=== PATIENT | female | born 1995 ===

== ENCOUNTER 2016-08-16 13:41 | Emergency (ER) | payer OTHER ==
[2016-08-16 13:52] VITALS: BP 107/68; PULSE 68; RESP 20; TEMP 97.7; O2SAT 100
--- NOTE | 2016-08-16 14:37 | C.PDOC ---
History Of Present Illness 21 yo female, no prior hx, presents with rash. asp er pt, has had rash to neck abdomen, and groin area x 3 months. rash is puritic. pt states saw pmd, but "nothing was done". no fevers, or other complaints. no known allergens. rash is puritic. Time Seen by Provider: 08/16/16 14:09 Chief Complaint (Nursing): Abnormal Skin Integrity Past Medical History Reviewed: Historical Data, Nursing Documentation, Vital Signs Vital Signs: Last Vital Signs Temp 97.7 F 08/16/16 13:48 Pulse 68 08/16/16 13:48 Resp 20 08/16/16 13:48 BP 107/68 08/16/16 13:48 Pulse Ox 100 08/16/16 13:48 - Medical History PMH: Hiatal Hernia Family History: States: Unknown Family Hx - Social History Hx Alcohol Use: No Hx Substance Use: No - Immunization History Hx Tetanus Toxoid Vaccination: No Hx Influenza Vaccination: No Hx Pneumococcal Vaccination: No Review Of Systems Except As Marked, All Systems Reviewed And Found Negative. Skin: Positive for: Rash Physical Exam - Physical Exam Appears: Well, No Acute Distress Skin: Normal Color, Warm, Dry Eye(s): bilateral: Normal Inspection, PERRL, EOMI Nose: Normal Throat: Normal Neck: Normal Cardiovascular: Rhythm Regular Respiratory: Normal Breath Sounds Gastrointestinal/Abdominal: Normal Exam Back: Normal Inspection Extremity: Normal ROM Additional Physical Exam Comments: (+)mild rash to posteror neck, right inginal region and upper abd, small maculopapular, 2-3 cm. ED Course And Treatment O2 Sat by Pulse Oximetry: 100 Medical Decision Making Medical Decision Making: nonspecific rash x 3 months, will provide supportive therapy and advise outpt f/ u Disposition - Disposition Referrals: Moon Whitehead MD [Staff Provider] - [facility] [Outside] [facility] [Outside] [facility] [Outside] Disposition: HOME/ ROUTINE Disposition Time: 14:37 Condition: STABLE Prescriptions: Hydrocortisone 1% Cream [Cortizone 1% Cream] 1 appl TP BID #1 tube Prednisone 50 mg PO DAILY #5 tablet Instructions: Acute Rash (ED) - Clinical Impression Clinical Impression: Rash
== END 2016-08-16 14:47 | disposition home or self-care (01) ==
LOC: C.ER 13:41
DX: R21 Rash and other nonspecific skin eruption (principal)

== ENCOUNTER 2016-08-31 18:46 | Emergency (ER) | payer SELFPAY ==
[2016-08-31 18:54] VITALS: BP 139/81; PULSE 70; RESP 18; TEMP 98; O2SAT 100
--- NOTE | 2016-08-31 19:23 | C.PDOC ---
History Of Present Illness 21 year old female presents to ED with complaints of itchy rash to neck for few weeks which has been spreading. Denies any fever, discharge, SOB, or known allergens. Time Seen by Provider: 08/31/16 19:13 Chief Complaint (Nursing): Abnormal Skin Integrity History Per: Patient History/Exam Limitations: no limitations Onset/Duration Of Symptoms: Days Current Symptoms Are (Timing): Still Present Quality Of Symptoms: Itching Severity: Mild Recent travel outside of the [place] States: No Past Medical History Reviewed: Historical Data, Nursing Documentation, Vital Signs Vital Signs: Last Vital Signs Temp 98 F 08/31/16 18:53 Pulse 70 08/31/16 18:53 Resp 18 08/31/16 18:53 BP 139/81 08/31/16 18:53 Pulse Ox 100 08/31/16 19:47 - Medical History PMH: Hiatal Hernia Surgical History: No Surg Hx Family History: States: Unknown Family Hx - Social History Hx Alcohol Use: No Hx Substance Use: No - Immunization History Hx Tetanus Toxoid Vaccination: No Hx Influenza Vaccination: No Hx Pneumococcal Vaccination: No Review Of Systems Constitutional: Negative for: Fever, Chills ENT: Negative for: Ear Pain, Nose Congestion, Throat Pain Cardiovascular: Negative for: Palpitations Respiratory: Negative for: Shortness of Breath Skin: Positive for: Rash (itchy rash to neck) Neurological: Negative for: Weakness, Numbness, Headache, Dizziness Physical Exam - Physical Exam Appears: Non-toxic, No Acute Distress Skin: Warm, Dry, Rash (scaly patches and erythema to anterior posterior neck and under bilateral breasts and inguinal area) Head: Atraumatic, Normacephalic Eye(s): bilateral: Normal Inspection Neck: Normal ROM Chest: Symmetrical Cardiovascular: Rhythm Regular, No Murmur Respiratory: Normal Breath Sounds, No Rales, No Rhonchi, No Wheezing Extremity: Bilateral: Atraumatic, Normal Color And Temperature, Normal ROM Neurological/Psych: Oriented x3, Normal Speech Gait: Steady ED Course And Treatment O2 Sat by Pulse Oximetry: 100 (room air) Pulse Ox Interpretation: Normal Medical Decision Making Medical Decision Making: Rash is consistent with fungal infection, will prescribe cream to use. Disposition Counseled Patient/Family Regarding: Need For Followup, Rx Given - Disposition Referrals: [facility] [Outside] Disposition: HOME/ ROUTINE Disposition Time: 19:23 Condition: STABLE Additional Instructions: apply cream to area twice a day for 2-3 weeks take benadryl as needed for itching follow up with supervisor quality control if symptoms persist Prescriptions: Ketoconazole 2% Cr [Nizoral] 15 applic EXT BID #1 tube Instructions: Tinea Corporis (ED) - POA Present On Arrival: None - Clinical Impression Clinical Impression: Tinea corporis - PA / RECRUITING CONSULTANT / Resident Statement MD/DO has reviewed & agrees with the documentation as recorded. - Scribe Statement The provider has reviewed the documentation as recorded by the Scribveronica Wahl All medical record entries made by the Artur were at my direction and personally dictated by me. I have reviewed the chart and agree that the record accurately reflects my personal performance of the history, physical exam, medical decision making, and the department course for this patient. I have also personally directed, reviewed, and agree with the discharge instructions and disposition.
== END 2016-08-31 19:57 | disposition home or self-care (01) ==
LOC: C.ER 18:46 → SUPCPDRO 18:46 → C.ER 19:57
DX: B35.4 Tinea corporis (principal)

== ENCOUNTER 2017-09-01 19:28 | Emergency (ER) | payer MEDICAID ==
[2017-09-01] MEDS ORDERED: Sodium Chloride 0.9% 1,000 ML IV ONE (20:22)
[2017-09-01] MEDS ORDERED: Sodium Chloride 0.9% 1,000 ML ONE (20:39)
[2017-09-01 20:40] LABS: EOS % 0.3 % (0.0-4.0); HEMOGLOBIN 12.8 g/dL (11.0-16.0); LYMPH % 7.4 % (20.0-40.0); MEAN CELL VOLUME 81.7 fL (81.0-99.0); MEAN CORPUSCULAR HEMOGLOBIN 26.9 pg (27.0-31.0); MEAN CORPUSCULAR HGB CONC 32.9 g/dL (33.0-37.0); MEAN PLATELET VOLUME 9.2 fL (7.2-11.7); MONO # 1.1 K/uL (0.0-0.8); MONO % 8.1 % (0.0-10.0); NEUT % 84.2 % (50.0-75.0); PLATELET COUNT 204 K/uL (130-400); RBC 4.77 Mil/uL (3.80-5.20); RED CELL DISTRIBUTION WIDTH 16.2 % (11.5-14.5); WHITE BLOOD COUNT 13.1 K/uL (4.8-10.8)
[2017-09-01 20:50] LABS: SQUAMOUS EPITHIAL 11 /hpf (0-5); URINE BACTERIA RARE (<OCC); URINE BILIRUBIN NEGATIVE (NEGATIVE); URINE BLOOD NEGATIVE (NEGATIVE); URINE CLARITY Hazy (Clear); URINE COLOR Yellow (YELLOW); URINE GLUCOSE (UA) NORMAL (Normal); URINE LEUKOCYTE ESTERASE TRACE Leu/uL (Negative); URINE PROTEIN 1+ mg/dL (NEGATIVE); URINE UROBILINOGEN NORMAL mg/dL (0.2-1.0)
[2017-09-01 20:55] LABS: ALB/GLOB RATIO 1.1 (1.0-2.1); ALT/SGPT 19 U/L (9-52); AST/SGOT 25 U/L (14-36); BLOOD UREA NITROGEN 10 mg/dL (7-17); CALCIUM 8.9 mg/dl (8.6-10.4); GFR AFRICAN-AMERICAN > 60; GFR NON-AFRICAN AMERICAN > 60; LIPASE 95 U/L (23-300)
--- NOTE | 2017-09-01 20:57 | C.PDOC ---
History Of Present Illness 22 year old female, who is currently 11 weeks , presents to the ED for evaluation of nausea, vomiting, and diarrhea which began after she ate [place] food earlier today. Patient recently had a normal ultrasound and does not want another ultrasound right now. Patient denies vaginal bleeding/discharge, hematuria, dysuria. Time Seen by Provider: 09/01/17 20:17 Chief Complaint (Nursing): Abdominal Pain History Per: Patient History/Exam Limitations: no limitations Onset/Duration Of Symptoms: Hrs Current Symptoms Are (Timing): Still Present Associated Symptoms: Nausea, Vomiting, Diarrhea. denies: Urinary Symptoms Additional History Per: Patient Abnormal Vaginal Bleeding: No Past Medical History Reviewed: Historical Data, Nursing Documentation, Vital Signs Vital Signs: Last Vital Signs Temp 98.1 F 09/01/17 19:34 Pulse 74 09/01/17 19:34 Resp 14 09/01/17 19:34 BP 115/70 09/01/17 19:34 Pulse Ox 98 09/01/17 20:57 - Medical History PMH: Hiatal Hernia Surgical History: No Surg Hx Family History: States: Unknown Family Hx - Social History Hx Alcohol Use: No Hx Substance Use: No - Immunization History Hx Tetanus Toxoid Vaccination: No Hx Influenza Vaccination: No Hx Pneumococcal Vaccination: No Review Of Systems Gastrointestinal: Positive for: Nausea, Vomiting, Diarrhea Genitourinary: Negative for: Dysuria, Hematuria, Vaginal Discharge, Vaginal Bleeding Physical Exam - Physical Exam Appears: Non-toxic, No Acute Distress Skin: Normal Color, Warm, Dry Head: Atraumatic, Normacephalic Eye(s): bilateral: Normal Inspection Oral Mucosa: Moist Neck: Supple Chest: Symmetrical, No Deformity, No Tenderness Cardiovascular: Rhythm Regular, No Murmur Respiratory: Normal Breath Sounds, No Rales, No Rhonchi, No Wheezing Gastrointestinal/Abdominal: Soft, No Tenderness, No Guarding, No Rebound, Other (obese) Extremity: Normal ROM, Capillary Refill (less than 2 seconds ) Neurological/Psych: Oriented x3, Normal Speech, Normal Cognition Gait: Steady ED Course And Treatment - Laboratory Results Result Diagrams: 09/01/17 20:37 09/01/17 20:37 O2 Sat by Pulse Oximetry: 98 (on RA) Pulse Ox Interpretation: Normal Progress Note: Bloodwork and urinalysis ordered and reviewed. Zofran IVP and IV Fluids administered. Medical Decision Making Medical Decision Making: gastroenteritis from [place] food normal - re-eval deferred at this time by pt preference. Disposition Doctor Will See Patient In The: Office Counseled Patient/Family Regarding: Studies Performed, Diagnosis - Disposition Referrals: [facility] [Outside] [facility] [Outside] [facility] [Outside] Disposition: HOME/ ROUTINE Disposition Time: 20:57 Condition: GOOD Additional Instructions: sigue dieta blanda de BRAT: Bananas, arroz archibald, manzana, najera stefano jer muchos liquidos Sigue en la [facility]. Instructions: Gastroenteritis (DC) Forms: [employer] (Grenadian) Print Language: ENGLISH - Clinical Impression Clinical Impression: Gastroenteritis due to food toxin - Scribe Statement The provider has reviewed the documentation as recorded by the Scribe (Vanessa Acosta) Provider Attestation: All medical record entries made by the Scribe were at my direction and personally dictated by me. I have reviewed the chart and agree that the record accurately reflects my personal performance of the history, physical exam, medical decision making, and the department course for this patient. I have also personally directed, reviewed, and agree with the discharge instructions and disposition.
[2017-09-01 21:23] VITALS: BP 108/70; PULSE 88; RESP 18; TEMP 98.2; O2SAT 100
[2017-09-01 21:35] LABS: BANDS 2 % (0-2); LYMPHOCYTE 5 % (20-40); MONOCYTE 4 % (0-10); NEUTROPHIL 89 % (50-75); PLATELET ESTIMATE NORMAL (NORMAL); TOTAL CELLS COUNTED 100
== END 2017-09-01 21:22 | disposition home or self-care (01) ==
LOC: C.ER 19:28
DX: O26.91 Pregnancy related conditions, unspecified, first trimester (principal); K52.1 Toxic gastroenteritis and colitis; Z3A.11 11 weeks gestation of pregnancy
CPT/HCPCS: 80053; 81001; 83690; 85025; 96374; 99284; J2405; J7030

== ENCOUNTER 2018-01-06 11:19 | Emergency (ER) | payer MEDICAID, OTHER ==
[2018-01-06 11:33] VITALS: O2SAT 98; BMI 37.5
--- NOTE | 2018-01-06 12:09 | C.PDOC ---
History Of Present Illness 22 year old female who is currently 7 months presents to the ED complaining of itchy rash to the neck and under the breast folds. Patient reports similar presentation in the past. Reports she is using Metronidazole with minimal relief of symptoms. Denies any fever, n/v/d, or any other symptoms. Time Seen by Provider: 01/06/18 11:40 Chief Complaint (Nursing): Abnormal Skin Integrity History Per: Patient History/Exam Limitations: no limitations Onset/Duration Of Symptoms: Days Current Symptoms Are (Timing): Still Present Quality Of Symptoms: Itching Past Medical History Reviewed: Historical Data, Nursing Documentation, Vital Signs Vital Signs: Last Vital Signs Temp 98.6 F 01/06/18 11:33 Pulse 92 H 01/06/18 11:33 Resp 20 01/06/18 11:33 BP 117/76 01/06/18 11:33 Pulse Ox 98 01/06/18 11:33 - Medical History PMH: Hiatal Hernia Other Surgeries: Hx of surgeries Family History: States: No Known Family Hx - Social History Hx Alcohol Use: No Hx Substance Use: No - Immunization History Hx Tetanus Toxoid Vaccination: No Hx Influenza Vaccination: No Hx Pneumococcal Vaccination: No Review Of Systems Except As Marked, All Systems Reviewed And Found Negative. Constitutional: Negative for: Fever Skin: Positive for: Rash (itchy rash on neck and under breast folds ) Physical Exam - Physical Exam Appears: Non-toxic Skin: Warm, Dry, Other (large urticarial shaped patches on anterior neck crease and under bilateral breast folds. ) Head: Normacephalic Eye(s): bilateral: Normal Inspection Nose: Normal Oral Mucosa: Moist Neck: Normal ROM Chest: Symmetrical Extremity: Normal ROM Extremity: Bilateral: Atraumatic Neurological/Psych: Oriented x3, Normal Speech Gait: Steady ED Course And Treatment O2 Sat by Pulse Oximetry: 98 (RA) Pulse Ox Interpretation: Normal Medical Decision Making Medical Decision Making: Orders: - Benadryl 25 mg PO On reassessment, patient reports feeling better. Instructed to follow up with primary medical doctor or clinic in 2-5 days for further evaluation. Take medications as prescribed. Return to the emergency department at any time if symptoms persist or worsen. Disposition - Disposition Referrals: [facility] [Outside] [facility] [Outside] Disposition: HOME/ ROUTINE Disposition Time: 12:44 Condition: STABLE Additional Instructions: Follow up with the medical doctor within 1-2 days, Return if worsened. Prescriptions: DiphenhydrAMINE [Benadryl] 25 mg PO QID #28 cap Triamcinolone 0.1% [Triamcinolone 0.1% Cream] 0.1 gm TP BID PRN #1 tube PRN Reason: Itching / Pruritus Instructions: Psoriasis (DC) Forms: [employer] (Lao) - Clinical Impression Clinical Impression: Rash, Urticaria - PA / LEADITE MAN / Resident Statement MD/DO has reviewed & agrees with the documentation as recorded. - Scribe Statement The provider has reviewed the documentation as recorded by the Scribe Calli David All medical record entries made by the hCachaibveronica were at my direction and personally dictated by me. I have reviewed the chart and agree that the record accurately reflects my personal performance of the history, physical exam, medical decision making, and the department course for this patient. I have also personally directed, reviewed, and agree with the discharge instructions and disposition.
[2018-01-06 12:58] VITALS: BP 109/74; PULSE 85; RESP 18; TEMP 98.9
== END 2018-01-06 12:57 | disposition home or self-care (01) ==
LOC: C.ER 11:19
DX: O26.893 Other specified pregnancy related conditions, third trimester (principal); Z3A.28 28 weeks gestation of pregnancy; L50.9 Urticaria, unspecified

== ENCOUNTER 2018-04-01 15:34 | Emergency (ER) | payer OTHER ==
[2018-04-01 15:36] VITALS: BMI 37.5
[2018-04-01 15:47] VITALS: BP 103/65; PULSE 66; RESP 18; TEMP 97.5; O2SAT 98
--- NOTE | 2018-04-01 16:53 | C.PDOC ---
History Of Present Illness 22 year old female presents to the ED for a evaluation of wound dehiscence with associated minimal pain. Patient reports she noticed it today when she went to the bathroom. Reports she gave 17 days ago. Denies any other complaints. Time Seen by Provider: 04/01/18 16:03 Chief Complaint (Nursing): Wound Check History Per: Patient History/Exam Limitations: no limitations Onset/Duration Of Symptoms: Hrs Current Symptoms Are (Timing): Still Present Location Of Injury: Anterior: Abdomen (wound dehiscence ) Quality Of Symptoms: Painful Past Medical History Reviewed: Historical Data, Nursing Documentation, Vital Signs Vital Signs: Last Vital Signs Temp 97.5 F L 04/01/18 15:43 Pulse 66 04/01/18 15:43 Resp 18 04/01/18 15:43 BP 103/65 04/01/18 15:43 Pulse Ox 98 04/01/18 15:43 - Medical History PMH: Hiatal Hernia Surgical History: Family History: States: No Known Family Hx - Social History Hx Alcohol Use: No Hx Substance Use: No - Immunization History Hx Tetanus Toxoid Vaccination: No Hx Influenza Vaccination: No Hx Pneumococcal Vaccination: No Review Of Systems Constitutional: Negative for: Fever, Chills Skin: Positive for: Other (wound desihence ) Physical Exam - Physical Exam Eye(s): bilateral: Normal Inspection Neck: Supple Chest: Symmetrical Cardiovascular: Rhythm Regular Respiratory: Normal Breath Sounds, No Rales, No Rhonchi, No Wheezing Gastrointestinal/Abdominal: Soft, No Tenderness, Other (well healing post surgical wound. 2mm shallow opening to right edge of wound, no drainage, no warmth, no redness, nontender) Neurological/Psych: Oriented x3, Normal Speech Gait: Steady ED Course And Treatment O2 Sat by Pulse Oximetry: 98 (RA) Pulse Ox Interpretation: Normal Medical Decision Making Medical Decision Making: Wound cleaned with sterile saline. Steri strips used to close wound. Patient instructed to keep wound dry and intact. Patient given follow up instructions. Instructed to return to ER if symptoms worsen or new symptoms arise. Disposition Counseled Patient/Family Regarding: Diagnosis, Need For Followup - Disposition Disposition: HOME/ ROUTINE Disposition Time: 17:05 Condition: GOOD Additional Instructions: Mantenga las tiras esterilizadas en la herida hasta que se caigan solas. Haz un seguimiento con tu gineclogo esta semana. Volver a la nicole de emergencias para la descarga de la herida, hinchazn. mal olor. fiebre o cualquier otra inquietud. Keep steri strips on wound until they fall off on their own. Follow up with your acting section chief this week. Return to ER for discharge from wound, swelling. bad smell. fever or any other concerns. Instructions: Wound Dehiscence (DC) Forms: Gen Discharge Inst Egyptian, [employer] (Egyptian) Print Language: LITHUANIAN - Clinical Impression Clinical Impression: Encounter for post surgical wound check, Wound dehiscence, - PA / HUMAN RESOURCES RECORDS CLERK / Resident Statement MD/DO has reviewed & agrees with the documentation as recorded. - Scribe Statement The provider has reviewed the documentation as recorded by the Scribe Calli David All medical record entries made by the Scribe were at my direction and personally dictated by me. I have reviewed the chart and agree that the record accurately reflects my personal performance of the history, physical exam, medical decision making, and the department course for this patient. I have also personally directed, reviewed, and agree with the discharge instructions and disposition.
== END 2018-04-01 17:15 | disposition home or self-care (01) ==
LOC: C.ER 15:34
DX: O90.0 Disruption of cesarean delivery wound (principal)